=== PATIENT | male | born 1960 | race African-American/Black ===

== ENCOUNTER 2020-08-18 15:09 | Inpatient (IN) ==
[2020-08-18] MEDS ORDERED: SODIUM CHLORIDE 0.9% 1,000 ML IV STA (15:17)
[2020-08-18 15:46] LABS: Basophils % 0.1 % (0.0-0.8); Eosinophils # 0.1 10*3/uL (0.0-0.87); Eosinophils % 1.1 % (0.00-10.9); Hematocrit 29.4 VOL% (42.0-52.0); Hemoglobin 9.6 GM/DL (14.0-18.0); Immature Granulocytes Absolute 0.09 #; Lymphocytes # 1.2 10*3/uL (1.4-4.0); Lymphocytes % 13.5 % (21.2-54.2); Mean Corpuscular HGB Conc 32.7 GM/DL (32-36); Mean Corpuscular Volume 93.9 FL (87-102); Mean Platelet Volume 11.6 FL (9.6-12.0); NRBC # 0.07 10*3/uL; Neutrophils % 78.3 % (38.7-73.9); Platelet Count 385 T/CUMM (130-400); Red Blood Count 3.13 MC/CUMM (3.8-5.5); Red Cell Distribution Width 16.6 % (9.3-17.3); White Blood Count 9.1 T/CUMM (4-12)
[2020-08-18 16:03] LABS: Albumin 2.1 G/DL (3.4-5.0); Bilirubin,Total 0.5 MG/DL (0.2-1.0); Calcium 8.2 MG/DL (8.5-10.1); Potassium 3.7 MMOL/L (3.5-5.1); Total Protein 5.7 G/DL (5.0-7.5)
[2020-08-18 16:09] LABS: Bilirubin,Urine Negative (Negative); Blood, Urine Negative (Negative); Glucose,Urine (UA) Negative (Negative); Ketones,Urine Negative (Negative); Mucus,Urine Occasional /LPF (Occasional); Nitrite,Urine Negative (Negative); Protein,Urine Negative; RBC,Urine 3 /HPF (0-4); Urine Appearance CLEAR (Clear); Urine Color Yellow (Yellow); Urine Specific Gravity 1.017 (1.001-1.035); Urine Urobilinogen < 2.0 EU/DL (0.2-1.0); WBC,Urine 3 /HPF (0-6)
[2020-08-18] MEDS ORDERED: DEXTROSE 50% 25 GM/50 ML VIAL IV PRN ×2 (16:46→16:56)
[2020-08-18] MEDS ORDERED: GLUCAGON 1 MG VIAL IM PRN ×2 (16:46→16:56)
[2020-08-18] MEDS ORDERED: ALBUTEROL 2.5 MG/3 ML NEB RESP TX PRN (16:51)
[2020-08-18] MEDS ORDERED: ONDANSETRON 4 MG/2 ML VIAL IV PRN (16:51)
[2020-08-18] MEDS ORDERED: PNEUMOCOCCAL VACCINE (23 VALENT) 0.5 ML VIAL IM ONE (17:49)
[2020-08-18] MEDS: methylPREDNISolone SOD SUC 40 MG/1 ML VIAL IV SCH (18:41)
[2020-08-18] MEDS: HALOPERIDOL 5 MG/ML AMP IM SCH (18:41)
[2020-08-18] MEDS: INSULIN LISPRO 100 UNIT/ML SUBCUT SCH (18:45)
[2020-08-18] MEDS: INSULIN GLARGINE 100 UNIT/ML SUBCUT SCH (18:45)
[2020-08-18] MEDS: cefTRIAXone 1,000 MG in SYRINGE 1 EACH IV SCH (18:45)
[2020-08-18] MEDS: MIDAZOLAM 100 MG in SODIUM CHLORIDE 0.9% 80 ML IV PRN (18:51)
[2020-08-18] MEDS ORDERED: [UNRECOGNIZED DRUG - OTHER] PO SCH (21:00)
[2020-08-18] MEDS: metroNIDAZOLE INJ 750 MG in PREMIX 1 EACH IV SCH (21:48)
[2020-08-18] MEDS: METOPROLOL TARTRATE 50 MG TABLET PEG SCH (21:48)
[2020-08-18] MEDS: OMEPRAZOLE ODT 20 MG TABLET PEG SCH (21:48)
[2020-08-18] MEDS: POTASSIUM CHLORIDE 20 MEQ PACK PEG SCH (22:00)
[2020-08-18] MEDS ORDERED: POTASSIUM CHLORIDE 20 MEQ PACK PO SCH (22:00)
[2020-08-19] MEDS: INSULIN LISPRO 100 UNIT/ML SUBCUT SCH ×5 (01:05→23:41)
[2020-08-19 03:21] LABS: ABG Base Excess 8.4 MMOL/L (-2.5-2.5); ABG HCO3 32.2 MMOL/L (20-26); ABG Oxygen Saturation 98.5 % (95-100); ABG PCO2 60.6 MM HG (35-48); ABG PH 7.375 (7.35-7.45); ABG TCO2 32.5 MMOL/L (23-27); Allen Test Positive; Pt O2 Delivery Device Ventilator
[2020-08-19 04:56] LABS: Basophils % 0.1 % (0.0-0.8); Eosinophils % 0.4 % (0.00-10.9); Hematocrit 29.8 VOL% (42.0-52.0); Hemoglobin 9.6 GM/DL (14.0-18.0); Immature Granulocytes % 0.8 %; Immature Granulocytes Absolute 0.07 #; Lymphocytes # 2.1 10*3/uL (1.4-4.0); Lymphocytes % 22.8 % (21.2-54.2); Mean Corpuscular HGB Conc 32.2 GM/DL (32-36); Mean Corpuscular Volume 94.6 FL (87-102); Mean Platelet Volume 12.1 FL (9.6-12.0); Monocytes % 7.5 % (1.7-12.7); NRBC # 0.05 10*3/uL; Neutrophils % 68.4 % (38.7-73.9); Platelet Count 360 T/CUMM (130-400); Red Blood Count 3.15 MC/CUMM (3.8-5.5); Red Cell Distribution Width 16.9 % (9.3-17.3); White Blood Count 9.2 T/CUMM (4-12)
[2020-08-19 05:19] LABS: Eosinophils 2 % (0-10); Hypochromasia 1+; Lymphocytes 17 % (20-55); Platelet Estimate Adequate; Segmented Neutrophils 71 % (50-85); Total Cells Counted 100
[2020-08-19 05:23] LABS: INR 1.1; PT Patient Result 11.4 SECS (9.8-11.9)
[2020-08-19 05:29] LABS: Alanine Aminotransferase 27 U/L (16-61); Albumin 2.3 G/DL (3.4-5.0); Alkaline Phosphatase 67 U/L (45-117); Aspartate Amino Transferase 20 U/L (0-37); Blood Urea Nitrogen 39 MG/DL (7-18); Calcium 9.9 MG/DL (8.5-10.1); Carbon Dioxide 32 MMOL/L (21-32); Estimated Glom Filtration Rate 94 ML/MIN; Glucose 133 MG/DL (74-106); Osmolality,Calculated 306.1 MOS/KG (273-304); Potassium 4.2 MMOL/L (3.5-5.1); Sodium 149 MMOL/L (136-145); Total Protein 6.4 G/DL (5.0-7.5); Troponin I < 0.015 NG/ML (0.00-0.045)
[2020-08-19] MEDS: methylPREDNISolone SOD SUC 40 MG/1 ML VIAL IV SCH ×2 (06:22→16:24)
[2020-08-19] MEDS: metroNIDAZOLE INJ 750 MG in PREMIX 1 EACH IV SCH ×3 (06:22→20:17)
[2020-08-19] MEDS: HALOPERIDOL 5 MG/ML AMP IM SCH ×2 (06:23→16:23)
[2020-08-19] MEDS: POTASSIUM CHLORIDE 20 MEQ PACK PEG SCH ×3 (09:25→20:16)
[2020-08-19] MEDS: ENOXAPARIN 100 MG/ML SYRINGE SUBCUT SCH (09:25)
[2020-08-19] MEDS: METOCLOPRAMIDE 10 MG/2 ML VIAL IV SCH ×4 (09:26→23:48)
[2020-08-19] MEDS: OMEPRAZOLE ODT 20 MG TABLET PEG SCH ×2 (09:26→20:16)
[2020-08-19] MEDS: METOPROLOL TARTRATE 50 MG TABLET PEG SCH ×2 (09:26→20:16)
[2020-08-19] MEDS: LACTATED RINGERS 1,000 ML IV SCH ×2 (11:42→20:25)
[2020-08-19] MEDS: amLODIPine 5 MG TABLET PER TUBE SCH (11:43)
[2020-08-19] MEDS ORDERED: DEXMEDETOMIDINE 400 MCG in SODIUM CHLORIDE 0.9% 96 ML IV PRN (13:05)
[2020-08-19] MEDS: MIDAZOLAM 100 MG in SODIUM CHLORIDE 0.9% 80 ML IV PRN ×2 (13:11→20:28)
[2020-08-19] MEDS: cefTRIAXone 1,000 MG in SYRINGE 1 EACH IV SCH (16:26)
[2020-08-19] MEDS: INSULIN GLARGINE 100 UNIT/ML SUBCUT SCH (20:24)
[2020-08-20 03:18] LABS: ABG Base Excess 6.8 MMOL/L (-2.5-2.5); ABG HCO3 30.5 MMOL/L (20-26); ABG Oxygen Saturation 90.5 % (95-100); ABG PCO2 53.9 MM HG (35-48); ABG PH 7.396 (7.35-7.45); ABG PO2 63.2 MM HG (80-95); Allen Test Positive; Pt O2 Delivery Device Ventilator
[2020-08-20 03:39] LABS: Basophils % 0.2 % (0.0-0.8); Eosinophils % 0.4 % (0.00-10.9); Hematocrit 29.1 VOL% (42.0-52.0); Hemoglobin 9.2 GM/DL (14.0-18.0); Immature Granulocytes % 0.4 %; Immature Granulocytes Absolute 0.04 #; Lymphocytes # 2.2 10*3/uL (1.4-4.0); Lymphocytes % 21.8 % (21.2-54.2); Mean Corpuscular HGB Conc 31.6 GM/DL (32-36); Mean Corpuscular Volume 96.4 FL (87-102); Mean Platelet Volume 11.1 FL (9.6-12.0); Monocytes % 6.7 % (1.7-12.7); NRBC # 0.04 10*3/uL; Neutrophils % 70.5 % (38.7-73.9); Platelet Count 356 T/CUMM (130-400); Red Blood Count 3.02 MC/CUMM (3.8-5.5); Red Cell Distribution Width 17.2 % (9.3-17.3); White Blood Count 10.1 T/CUMM (4-12)
[2020-08-20 03:54] LABS: Albumin 2.2 G/DL (3.4-5.0); Bilirubin,Total 0.5 MG/DL (0.2-1.0); Calcium 9.4 MG/DL (8.5-10.1); Osmolality,Calculated 308.9 MOS/KG (273-304); Potassium 4.1 MMOL/L (3.5-5.1); Total Protein 6.1 G/DL (5.0-7.5)
[2020-08-20 04:03] LABS: Hypochromasia 1+; Microcytosis 1+; Platelet Estimate Adequate
[2020-08-20] MEDS: methylPREDNISolone SOD SUC 40 MG/1 ML VIAL IV SCH ×2 (04:46→17:07)
[2020-08-20] MEDS: HALOPERIDOL 5 MG/ML AMP IM SCH ×2 (04:47→17:07)
[2020-08-20] MEDS: metroNIDAZOLE INJ 750 MG in PREMIX 1 EACH IV SCH ×3 (04:47→21:22)
[2020-08-20] MEDS: MIDAZOLAM 100 MG in SODIUM CHLORIDE 0.9% 80 ML IV PRN ×3 (04:49→19:43)
[2020-08-20 05:55] VITALS: BP 159/101
[2020-08-20] MEDS: METOCLOPRAMIDE 10 MG/2 ML VIAL IV SCH ×3 (06:03→17:09)
[2020-08-20] MEDS: LACTATED RINGERS 1,000 ML IV SCH ×2 (06:03→17:14)
[2020-08-20] MEDS: INSULIN LISPRO 100 UNIT/ML SUBCUT SCH ×3 (06:03→18:17)
[2020-08-20] MEDS: METOPROLOL TARTRATE 50 MG TABLET PEG SCH ×2 (09:04→21:23)
[2020-08-20] MEDS: ACETAMINOPHEN 325 MG/10.15 ML UDCUP PEG PRN ×2 (09:04→17:55)
[2020-08-20] MEDS: OMEPRAZOLE ODT 20 MG TABLET PEG SCH ×2 (09:04→21:23)
[2020-08-20] MEDS: POTASSIUM CHLORIDE 20 MEQ PACK PEG SCH ×3 (09:04→21:22)
[2020-08-20] MEDS: ENOXAPARIN 100 MG/ML SYRINGE SUBCUT SCH (09:05)
[2020-08-20] MEDS: amLODIPine 5 MG TABLET PER TUBE SCH (09:06)
[2020-08-20] MEDS: cefTRIAXone 1,000 MG in SYRINGE 1 EACH IV SCH (17:14)
[2020-08-20] MEDS: INSULIN GLARGINE 100 UNIT/ML SUBCUT SCH (19:44)
[2020-08-21] MEDS: INSULIN LISPRO 100 UNIT/ML SUBCUT SCH ×4 (00:37→18:29)
[2020-08-21] MEDS: METOCLOPRAMIDE 10 MG/2 ML VIAL IV SCH ×4 (00:54→18:01)
[2020-08-21] MEDS: MIDAZOLAM 100 MG in SODIUM CHLORIDE 0.9% 80 ML IV PRN ×4 (02:25→23:03)
[2020-08-21 03:20] LABS: ABG Base Excess 4.3 MMOL/L (-2.5-2.5); ABG HCO3 28.3 MMOL/L (20-26); ABG Oxygen Saturation 98.9 % (95-100); ABG PCO2 48.9 MM HG (35-48); ABG PH 7.396 (7.35-7.45); ABG TCO2 27.4 MMOL/L (23-27)
[2020-08-21] MEDS: hydrALAZINE 20 MG/1 ML VIAL IV PRN (03:23)
[2020-08-21] MEDS: LACTATED RINGERS 1,000 ML IV SCH (03:43)
[2020-08-21 03:51] LABS: Basophils % 0.1 % (0.0-0.8); Eosinophils % 0.2 % (0.00-10.9); Hematocrit 28.6 VOL% (42.0-52.0); Hemoglobin 9.5 GM/DL (14.0-18.0); Immature Granulocytes % 0.5 %; Immature Granulocytes Absolute 0.05 #; Mean Corpuscular HGB Conc 33.2 GM/DL (32-36); Mean Corpuscular Volume 94.7 FL (87-102); Mean Platelet Volume 11.1 FL (9.6-12.0); Monocytes % 6.4 % (1.7-12.7); NRBC # 0.03 10*3/uL; Neutrophils % 70.8 % (38.7-73.9); Platelet Count 365 T/CUMM (130-400); Red Blood Count 3.02 MC/CUMM (3.8-5.5); Red Cell Distribution Width 17.2 % (9.3-17.3); White Blood Count 9.3 T/CUMM (4-12)
[2020-08-21] MEDS: methylPREDNISolone SOD SUC 40 MG/1 ML VIAL IV SCH ×2 (04:31→16:47)
[2020-08-21] MEDS: HALOPERIDOL 5 MG/ML AMP IM SCH ×2 (04:31→16:46)
[2020-08-21] MEDS: metroNIDAZOLE INJ 750 MG in PREMIX 1 EACH IV SCH ×3 (04:34→21:36)
[2020-08-21 04:38] LABS: Albumin 2.2 G/DL (3.4-5.0); Bilirubin,Total 0.6 MG/DL (0.2-1.0); Calcium 9.7 MG/DL (8.5-10.1); Osmolality,Calculated 308.7 MOS/KG (273-304); Potassium 4.4 MMOL/L (3.5-5.1)
[2020-08-21] MEDS: DEXTROSE 5% NACL 0.45% 1,000 ML IV SCH ×3 (09:00→19:01)
[2020-08-21] MEDS: METOPROLOL TARTRATE 50 MG TABLET PEG SCH ×2 (09:41→21:36)
[2020-08-21] MEDS: OMEPRAZOLE ODT 20 MG TABLET PEG SCH ×2 (09:44→21:36)
[2020-08-21] MEDS: amLODIPine 5 MG TABLET PER TUBE SCH (09:44)
[2020-08-21] MEDS: ENOXAPARIN 40 MG/0.4 ML SYRINGE SUBCUT SCH (09:44)
[2020-08-21] MEDS: POTASSIUM CHLORIDE 20 MEQ PACK PEG SCH ×3 (09:44→21:36)
[2020-08-21] MEDS ORDERED: BUPIVACAINE MPF 0.25% 30 ML VIAL ONE (10:39)
[2020-08-21] MEDS ORDERED: MIDAZOLAM 2 MG/2 ML VIAL ONE ×2 (10:43)
[2020-08-21] MEDS ORDERED: ROCURONIUM 50 MG/5 ML VIAL IV ONE (11:03)
[2020-08-21] MEDS ORDERED: ePHEDrine 50 MG/ML VIAL ONE (11:24)
[2020-08-21] MEDS ORDERED: SEVOFLURANE 1 UNIT/15 MINUTE INH ONE ×4 (11:54→12:31)
[2020-08-21] MEDS ORDERED: PHENYLEPHRINE 1 MG/10 ML SYRINGE IV ONE (12:31)
[2020-08-21] MEDS ORDERED: KETAMINE 500 MG/10 ML VIAL ONE (12:31)
[2020-08-21] MEDS: cefTRIAXone 1,000 MG in SYRINGE 1 EACH IV SCH (16:47)
[2020-08-21] MEDS: INSULIN GLARGINE 100 UNIT/ML SUBCUT SCH (18:02)
[2020-08-22] MEDS: hydrALAZINE 20 MG/1 ML VIAL IV PRN ×2 (00:35→20:08)
[2020-08-22] MEDS: METOCLOPRAMIDE 10 MG/2 ML VIAL IV SCH ×5 (00:35→23:18)
[2020-08-22] MEDS: INSULIN LISPRO 100 UNIT/ML SUBCUT SCH ×5 (00:35→23:07)
[2020-08-22 04:16] LABS: ABG Base Excess 3.6 MMOL/L (-2.5-2.5); ABG HCO3 27.6 MMOL/L (20-26); ABG Oxygen Saturation 97.5 % (95-100); ABG PCO2 46.9 MM HG (35-48); ABG PH 7.399 (7.35-7.45); ABG PO2 97.6 MM HG (80-95); ABG TCO2 26.4 MMOL/L (23-27); Allen Test Positive; Pt O2 Delivery Device Ventilator
[2020-08-22] MEDS: HALOPERIDOL 5 MG/ML AMP IM SCH ×2 (04:18→18:01)
[2020-08-22] MEDS: methylPREDNISolone SOD SUC 40 MG/1 ML VIAL IV SCH ×2 (04:18→18:01)
[2020-08-22] MEDS: metroNIDAZOLE INJ 750 MG in PREMIX 1 EACH IV SCH ×3 (04:37→20:09)
[2020-08-22 04:57] LABS: Basophils % 0.2 % (0.0-0.8); Eosinophils % 0.3 % (0.00-10.9); Hematocrit 30.6 VOL% (42.0-52.0); Hemoglobin 9.9 GM/DL (14.0-18.0); Immature Granulocytes % 1.1 %; Immature Granulocytes Absolute 0.11 #; Lymphocytes # 2.3 10*3/uL (1.4-4.0); Lymphocytes % 22.6 % (21.2-54.2); Mean Corpuscular HGB Conc 32.4 GM/DL (32-36); Mean Corpuscular Volume 94.7 FL (87-102); Mean Platelet Volume 11.7 FL (9.6-12.0); Monocytes % 7.5 % (1.7-12.7); NRBC # 0.04 10*3/uL; Neutrophils % 68.3 % (38.7-73.9); Platelet Count 367 T/CUMM (130-400); Red Blood Count 3.23 MC/CUMM (3.8-5.5); Red Cell Distribution Width 17.2 % (9.3-17.3); White Blood Count 10.4 T/CUMM (4-12)
[2020-08-22 05:06] LABS: Osmolality,Calculated 305.9 MOS/KG (273-304)
[2020-08-22 05:14] LABS: Hypochromasia 1+; Microcytosis 1+; Platelet Estimate Adequate
[2020-08-22] MEDS: MIDAZOLAM 100 MG in SODIUM CHLORIDE 0.9% 80 ML IV PRN ×3 (05:44→20:16)
[2020-08-22] MEDS: DEXTROSE 5% NACL 0.45% 1,000 ML IV SCH ×3 (05:44→14:40)
[2020-08-22] MEDS: amLODIPine 5 MG TABLET PER TUBE SCH (08:32)
[2020-08-22] MEDS: POTASSIUM CHLORIDE 20 MEQ PACK PEG SCH ×3 (08:32→20:08)
[2020-08-22] MEDS: OMEPRAZOLE ODT 20 MG TABLET PEG SCH ×2 (08:32→20:08)
[2020-08-22] MEDS: METOPROLOL TARTRATE 50 MG TABLET PEG SCH ×2 (08:32→20:09)
[2020-08-22] MEDS: ENOXAPARIN 40 MG/0.4 ML SYRINGE SUBCUT SCH (08:32)
[2020-08-22] MEDS: cefTRIAXone 1,000 MG in SYRINGE 1 EACH IV SCH (18:01)
[2020-08-22] MEDS: INSULIN GLARGINE 100 UNIT/ML SUBCUT SCH (18:02)
[2020-08-23] MEDS: DEXTROSE 5% NACL 0.45% 1,000 ML IV SCH ×3 (04:40→21:23)
[2020-08-23 04:50] LABS: Allen Test Positive; Pt O2 Delivery Device Ventilator
[2020-08-23] MEDS: HALOPERIDOL 5 MG/ML AMP IM SCH ×2 (04:52→16:00)
[2020-08-23] MEDS: methylPREDNISolone SOD SUC 40 MG/1 ML VIAL IV SCH ×2 (04:52→16:00)
[2020-08-23 04:54] LABS: ABG Base Excess 2.1 MMOL/L (-2.5-2.5); ABG HCO3 26.3 MMOL/L (20-26); ABG Oxygen Saturation 98.8 % (95-100); ABG PCO2 46.7 MM HG (35-48); ABG PH 7.381 (7.35-7.45); ABG TCO2 25.4 MMOL/L (23-27)
[2020-08-23 05:08] LABS: Basophils % 0.1 % (0.0-0.8); Eosinophils % 0.1 % (0.00-10.9); Hemoglobin 9.2 GM/DL (14.0-18.0); Immature Granulocytes Absolute 0.09 #; Lymphocytes # 2.5 10*3/uL (1.4-4.0); Lymphocytes % 27.2 % (21.2-54.2); Mean Corpuscular HGB Conc 31.7 GM/DL (32-36); Mean Corpuscular Volume 96.3 FL (87-102); Mean Platelet Volume 10.8 FL (9.6-12.0); Monocytes % 8.2 % (1.7-12.7); NRBC # 0.04 10*3/uL; Neutrophils % 63.4 % (38.7-73.9); Platelet Count 274 T/CUMM (130-400); Red Blood Count 3.01 MC/CUMM (3.8-5.5); Red Cell Distribution Width 17.6 % (9.3-17.3); White Blood Count 9.1 T/CUMM (4-12)
[2020-08-23 05:27] LABS: Platelet Estimate Adequate
[2020-08-23 05:28] LABS: Hypochromasia 1+; Microcytosis 1+
[2020-08-23 05:29] LABS: Howell-Jolly Bodies Slight
[2020-08-23] MEDS: METOCLOPRAMIDE 10 MG/2 ML VIAL IV SCH ×4 (05:42→23:51)
[2020-08-23] MEDS: metroNIDAZOLE INJ 750 MG in PREMIX 1 EACH IV SCH ×3 (05:42→20:31)
[2020-08-23] MEDS: MIDAZOLAM 100 MG in SODIUM CHLORIDE 0.9% 80 ML IV PRN ×3 (06:05→22:58)
[2020-08-23 06:17] LABS: Calcium 8.9 MG/DL (8.5-10.1); Osmolality,Calculated 297.4 MOS/KG (273-304); Potassium 3.9 MMOL/L (3.5-5.1)
[2020-08-23] MEDS: INSULIN LISPRO 100 UNIT/ML SUBCUT SCH ×4 (06:45→23:51)
[2020-08-23] MEDS ORDERED: MAGNESIUM SULF RIDER 2 GM in PREMIX 1 EACH IV ONE (08:00)
[2020-08-23] MEDS: METOPROLOL TARTRATE 50 MG TABLET PEG SCH ×2 (08:33→20:31)
[2020-08-23] MEDS: POTASSIUM CHLORIDE 20 MEQ PACK PEG SCH ×3 (08:33→20:31)
[2020-08-23] MEDS: ENOXAPARIN 40 MG/0.4 ML SYRINGE SUBCUT SCH (08:33)
[2020-08-23] MEDS: OMEPRAZOLE ODT 20 MG TABLET PEG SCH ×2 (08:34→20:31)
[2020-08-23] MEDS: amLODIPine 5 MG TABLET PER TUBE SCH (08:34)
[2020-08-23] MEDS ORDERED: NEOSTIGMINE 10 MG/10 ML VIAL IV ONE (11:05)
[2020-08-23] MEDS: cefTRIAXone 1,000 MG in SYRINGE 1 EACH IV SCH (17:48)
[2020-08-23] MEDS: INSULIN GLARGINE 100 UNIT/ML SUBCUT SCH (20:31)
[2020-08-24] MEDS: DEXTROSE 5% NACL 0.45% 1,000 ML IV SCH ×2 (03:00→06:31)
[2020-08-24 03:34] LABS: ABG Base Excess 0.1 MMOL/L (-2.5-2.5); ABG HCO3 24.6 MMOL/L (20-26); ABG Oxygen Saturation 98.7 % (95-100); ABG PCO2 47.2 MM HG (35-48); ABG TCO2 23.9 MMOL/L (23-27)
[2020-08-24] MEDS: methylPREDNISolone SOD SUC 40 MG/1 ML VIAL IV SCH (04:22)
[2020-08-24] MEDS: HALOPERIDOL 5 MG/ML AMP IM SCH (04:22)
[2020-08-24 04:31] LABS: Basophils % 0.1 % (0.0-0.8); Eosinophils % 0.2 % (0.00-10.9); Hematocrit 30.4 VOL% (42.0-52.0); Hemoglobin 9.8 GM/DL (14.0-18.0); Immature Granulocytes % 1.3 %; Immature Granulocytes Absolute 0.15 #; Lymphocytes # 2.6 10*3/uL (1.4-4.0); Lymphocytes % 22.9 % (21.2-54.2); Mean Corpuscular HGB Conc 32.2 GM/DL (32-36); Mean Corpuscular Volume 95.9 FL (87-102); Mean Platelet Volume 11.2 FL (9.6-12.0); Monocytes % 7.7 % (1.7-12.7); NRBC # 0.04 10*3/uL; Neutrophils % 67.8 % (38.7-73.9); Platelet Count 225 T/CUMM (130-400); Red Blood Count 3.17 MC/CUMM (3.8-5.5); Red Cell Distribution Width 17.4 % (9.3-17.3); White Blood Count 11.5 T/CUMM (4-12)
[2020-08-24 04:49] LABS: Calcium 9.1 MG/DL (8.5-10.1); Osmolality,Calculated 293.8 MOS/KG (273-304); Potassium 4.3 MMOL/L (3.5-5.1)
[2020-08-24 05:05] LABS: Platelet Estimate Adequate
[2020-08-24 05:06] LABS: Hypochromasia Slight; Microcytosis Slight
[2020-08-24] MEDS: METOCLOPRAMIDE 10 MG/2 ML VIAL IV SCH ×2 (05:36→12:29)
[2020-08-24] MEDS: metroNIDAZOLE INJ 750 MG in PREMIX 1 EACH IV SCH (05:36)
[2020-08-24] MEDS: INSULIN LISPRO 100 UNIT/ML SUBCUT SCH ×2 (05:36→12:29)
[2020-08-24] MEDS: OMEPRAZOLE ODT 20 MG TABLET PEG SCH (08:18)
[2020-08-24] MEDS: POTASSIUM CHLORIDE 20 MEQ PACK PEG SCH (08:18)
[2020-08-24] MEDS: ENOXAPARIN 40 MG/0.4 ML SYRINGE SUBCUT SCH (08:18)
[2020-08-24] MEDS: amLODIPine 5 MG TABLET PER TUBE SCH (08:18)
[2020-08-24] MEDS: METOPROLOL TARTRATE 50 MG TABLET PEG SCH (08:18)
[2020-08-24] MEDS: MIDAZOLAM 100 MG in SODIUM CHLORIDE 0.9% 80 ML IV PRN (08:35)
== END 2020-08-24 14:05 | DRG 4 ==
LOC: EDBD → EDUNIT# → N.ED 15:09 → N.EDINP 16:12 → SUATTDRO 16:12 → N.ICU 16:27
PROVIDERS: ADMIT Internal Medicine; ATTEND Family Medicine